=== PATIENT | female | born 1970 | race Caucasian/White ===

== ENCOUNTER 2017-04-01 12:42 | Emergency (ER) | payer OTHER ==
--- NOTE | ~2017-04-01 | CT71 ---
[facility] A Service of [facility] RADIOLOGY TEXT RESULTS PATIENT: TERRY LYNCH LOCATION: [facility] : 71 UNIT #: [id number] AGE: [address]: Beatrice Woods MD SEX: F ORDER DR: [id number] [facility] [address] [place], [place] [address] [id number] E MR#: [id number] Acc #: [id number] NAME: TERRY LYNCH : 1970 SEX: F STUDY DATE/TIME: 04/01/2017 14:07 UNIT: [facility] ROOM: STUDY DESCRIPTION: CT Head Wo Contrast Attending Physician: Beatrice Woods M.D. Ordering Physician: Beatrice Woods M.D. Primary Care Physician: iDnh Alvarez M.D. MEDICAL IMAGING REPORT This report is preliminary unless electronic signature is present EXAM CT brain without contrast media. HISTORY Moyamoya disease. Seizure this morning. TECHNIQUE Axial imaging of the brain was performed without contrast media and compared directly to the patient's most recent scan of 12/23/2016. This CT exam was performed with one or more of the following radiation dose reduction techniques: automatic exposure control, adjustment of mA and/or kV according to patient size, and iterative reconstruction. FINDINGS There is generalized ventricular enlargement. There is decreased attenuation throughout the periventricular region in both hemispheres predominantly over the frontal regions. This is all unchanged from the last study. Bone windows are reviewed. The patient has had bilateral frontotemporal craniotomies. No mass lesions, mass effect, acute hemorrhage, edema or hemorrhage. CONCLUSION Periventricular deep white matter ischemic changes in the frontal lobes with diffuse atrophy. Postsurgical changes in the frontotemporal regions bilaterally. No acute intracranial findings. Dictated by... Jose Francisco Barber M.D. THIS IS AN ELECTRONICALLY VERIFIED REPORT Jose Francisco Barber M.D. at 04/05/2017 4:50 PM ROBERTK/robert [facility] A Service [facility] RADIOLOGY TEXT RESULTS PATIENT: TERRY LYNCH LOCATION: [facility] #: [id number] : 72 UNIT #: [id number] AGE: [address]: Beatrice Woods MD SEX: F ORDER DR: TD: 04/01/2017 16:43 JOB #: [id number] MEDICAL IMAGING REPORT Page 1 of 1 COPY
--- NOTE | ~2017-04-01 | CR72 ---
[facility] A Service of [facility] & [facility] RADIOLOGY TEXT RESULTS PATIENT: TERRY LYNCH LOCATION: [facility] : 71 UNIT #: [id number] AGE: [address]: Beatrice Woods MD SEX: F ORDER DR: [id number] [facility] [address] [place], [place] [address] [id number] E MR#: [id number] Acc #: [id number] NAME: TERRY LYNCH : 1970 SEX: F STUDY DATE/TIME: 04/01/2017 13:39 UNIT: [facility] ROOM: STUDY DESCRIPTION: CR Chest Single View Portable Attending Physician: Beatrice Woods M.D. Ordering Physician: Beatrice Woods M.D. Primary Care Physician: Dinh Alvarez M.D. MEDICAL IMAGING REPORT This report is preliminary unless electronic signature is present EXAM Portable chest 04/01/2017 HISTORY 47-year-old woman generalized body pain, seizure, symptoms today. Comparison chest 12/24/2016 FINDINGS AP portable chest demonstrates normal stable heart size. Hilar structures and mediastinal contours are preserved and normal. Bilateral lungs are expanded and clear. Costophrenic angles are clear. Bony thorax is normal. IMPRESSION Negative and stable chest. Dictated by... Deuce Butler M.D. THIS IS AN ELECTRONICALLY VERIFIED REPORT Deuce Butler M.D. at 04/11/2017 8:10 AM Mable TD: 04/01/2017 15:48 JOB #: [id number] MEDICAL IMAGING REPORT Page 1 of 1 COPY
[~2017-04-01 12:42] MED LIST: AGGRENOX PO; AGGRENOX1 CAP PO; ALBUTEROL17 GM INH; ALPRAZOLAM PO; ASPIRIN PO; ASPIRIN325 M1 PO; AUGMENTIN PO; BENADRYL25 M3 PO; BENADRYL25 MG; CIPRO PO; HCTZ PO; K-DUR20 ME1 PO; KEFLEX500 MG PO; LIPITOR40 MG PO; LORTAB 10/500 T1 TAB PO; LORTAB 101 TAB 10/5 PO; METHADONE PO; MICRO-K PO; NEURONTIN; NEURONTIN PO; NEURONTIN300 MG PO; OXYCODONE15 M1 PO; PERCOCET10 PO; POTASSIUM CHLOR8 MEQ PO; PROPRANOLOL PO; PYRIDIUM100 MG PO; SENNA S TABLET1 TAB PO; SYNTHROID PO; SYNTHROID0.05 MG PO; SYNTHROID0.1 MG PO; TOPAMAX PO; TOPAMAX200 MG PO; TOPAMAX50 MG PO; TUSSIN DM SYRU120 ML PO; VIMPAT100 MG PO; XANAX1 MG PO; ZANAFLEX; ZANAFLEX4 M1 PO
[2017-04-01 14:09] LABS: BASOPHIL# 0.1 X10e3 (0-0.3); EOSINOPHIL# 0.6 X10e3 (0-0.7); EOSINOPHIL% 6.6 % (0.0-7.0); HEMATOCRIT 43.2 % (35.0-45.0); LYMPHOCYTE# 2.2 X10e3 (1.0-3.5); LYMPHOCYTE% 24.4 % (17.0-45.0); MEAN CELL VOLUME 89.3 FL (83-96); MEAN CORPUSCULAR HEMOGLOBIN 28.9 PG (28-34); MEAN CORPUSCULAR HGB CONC 32.4 g/dL (30-36); MEAN PLATELET VOLUME 8.1 FL (6.5-11.5); MONOCYTE# 0.5 X10e3 (0-1.0); MONOCYTE% 5.8 % (3.0-12.0); NEUTROPHIL# 5.5 X10e3 (1.5-7.1); NEUTROPHIL% 62.2 % (40-75); PLATELET COUNT 340 X10e3 (140-420); RED BLOOD COUNT 4.84 X10e (3.90-5.30); RED CELL DISTRIBUTION WIDTH 14.3 % (11.0-15.5); WHITE BLOOD COUNT 8.9 X10e3 (4.0-10.5)
[2017-04-01 14:10] LABS: DIFF IND NO
[2017-04-01 14:41] LABS: ALBUMIN SERUM 3.8 g/dL (3.5-5.0); ALKALINE PHOSPHATASE 83 U/L (32-92); ALT (SGPT) 17 U/L (10-40); AST (SGOT) 20 U/L (10-42); BILIRUBIN,TOTAL 0.2 mg/dL (0.2-2.0); BLOOD UREA NITROGEN 12 mg/dL (9-23); CALCIUM SERUM 9.3 mg/dL (8.4-10.2); CARBON DIOXIDE 25 mmol/L (22-31); CHLORIDE 103 mmol/L (100-111); CREATININE SERUM 1.1 mg/dL (0.6-1.4); GLOM FILT RATE Estimated 60.2 mL/min (>60); GLUCOSE FASTING 111 mg/dL (70-110); PROTEIN TOTAL SERUM 7.6 g/dL (6.0-8.3); SODIUM 137 mmol/L (135-145)
[2017-04-01 14:44] LABS: BILIRUBIN, DIRECT <0.1 mg/dL (0.0-0.2); BILIRUBIN,INDIRECT 0.1 mg/dL (0.0-0.9); POTASSIUM 2.6 mmol/L (3.5-5.1)
[2017-04-01 15:13] LABS: URINE SOURCE CLEAN CATCH
[2017-04-01 15:20] LABS: URINE APPEARANCE CLEAR; URINE BILIRUBIN NEG (NEG); URINE BLOOD 2+ (NEG); URINE COLOR YELLOW; URINE GLUCOSE NEG (NEG); URINE KETONE NEG (NEG); URINE LEUKOCYTE ESTERASE TRACE (NEG); URINE NITRATE NEG (NEG); URINE PH 6.5 (5-8); URINE PROTEIN NEG (NEG); URINE SPECIFIC GRAVITY 1.008 (1.003-1.035); URINE UROBILINOGEN 0.2 MG/DL (NEG)
[2017-04-01 15:24] LABS: CULTURE INDICATED? YES; U HYALINE CASTS AUWI 0-2 /[LPF]; URINE BACTERIA AUWI 2+ (NEGATIVE); URINE SQUAMOUS EPITHELIAL CELL FEW /[HPF]
[2017-04-01 15:34] LABS: AMPHETAMINE NEG (NEG); BARBITURATES NEG (NEG); BENZODIAZEPINES POS (NEG); COCAINE NEG (NEG); MARIJUANA NEG (NEG); OPIATES NEG (NEG); TRICYCLIC ANTIDEPRESSANTS NEG (NEG); U METHADONE NEG (NEG)
[2017-06-21] MEDS ORDERED: OXYCODONE15 M1 PO (14:42)
[2017-06-21] MEDS ORDERED: PATIENT'S PHARMACY (14:42)
[2017-06-21] MEDS ORDERED: LIPITOR20 MG PO (14:42)
[2017-06-21] MEDS ORDERED: GABAPENTIN300 M2 PO (14:43)
[2017-06-21] MEDS ORDERED: AGGRENOX PO (14:43)
[2017-06-21] MEDS ORDERED: HYDROCHLOROTHIA25 MG PO (14:43)
[2017-06-21] MEDS ORDERED: VIMPAT150 MG PO (14:44)
[2017-06-21] MEDS ORDERED: SYNTHROID88 MCG PO (14:44)
[2017-06-21] MEDS ORDERED: TOPAMAX PO (14:44)
== END 2017-04-01 17:19 | disposition home or self-care (01) ==
LOC: CED 12:42
PROVIDERS: Emergency Medicine
DX: N39.0 Urinary tract infection, site not specified (principal); E87.6 Hypokalemia; Z79.899 Other long term (current) drug therapy; Z88.1 Allergy status to other antibiotic agents; Z88.2 Allergy status to sulfonamides; Z88.6 Allergy status to analgesic agent; Z91.040 Latex allergy status; Z88.8 Allergy status to other drugs, medicaments and biological substances
CPT/HCPCS: 36415; 70450; 71010; 80048; 80076; 80307; 81003; 84703; 85025; 87086; 99284

== ENCOUNTER 2017-06-18 19:14 | Emergency (ER) | payer OTHER ==
[~2017-06-18] VITALS: Ht 157.5 cm; Wt 79.8 kg
--- NOTE | ~2017-06-18 | US85 ---
[facility] A Service of [facility] & [facility] RADIOLOGY TEXT RESULTS PATIENT: TERRY LYNCH LOCATION: [facility] : 72 UNIT #: [id number] AGE: [address]: LEROY FARIAS SEX: F ORDER DR: [id number] [place] [address] [id number] E MR#: [id number] Acc #: [id number] NAME: TERRY LYNCH : 1970 SEX: F STUDY DATE/TIME: 06/18/2017 22:24 UNIT: SED ROOM: STUDY DESCRIPTION: [facility] Unil or [facility] Stdy Attending Physician: Leroy Farias Ordering Physician: Jj Medina A.P.R.N. Primary Care Physician: Dinh Alvarez M.D. MEDICAL IMAGING REPORT This report is preliminary unless electronic signature is present. EXAM Left leg vein Doppler 06/18 at 22:24 INDICATIONS Foot and ankle swelling for 1 week. Patient on blood thinners. No trauma. TECHNIQUE Venous ultrasound examination of the left lower extremity was performed using grayscale, spectral Doppler and color flow Doppler imaging. FINDINGS The examination is negative. There is no evidence of left lower extremity deep venous thrombus from the groin to the lower calf. Visualized greater saphenous vein is also patent. IMPRESSION Negative examination. No evidence of left lower extremity deep venous thrombosis. Dictated by... Obi Pedro Jr., M.D. THIS IS AN ELECTRONICALLY VERIFIED REPORT Obi Pedro Jr., M.D. at 06/20/2017 3:12 AM STEPHANIE/sam TD: 06/19/2017 19:44 JOB #: [id number] MEDICAL IMAGING REPORT Page 1 of 1
[2017-06-21] MEDS ORDERED: LIPITOR20 MG PO (14:42)
[2017-06-21] MEDS ORDERED: OXYCODONE15 M1 PO (14:42)
[2017-06-21] MEDS ORDERED: PATIENT'S PHARMACY (14:42)
[2017-06-21] MEDS ORDERED: HYDROCHLOROTHIA25 MG PO (14:43)
[2017-06-21] MEDS ORDERED: AGGRENOX PO (14:43)
[2017-06-21] MEDS ORDERED: GABAPENTIN300 M2 PO (14:43)
[2017-06-21] MEDS ORDERED: TOPAMAX PO (14:44)
[2017-06-21] MEDS ORDERED: VIMPAT150 MG PO (14:44)
[2017-06-21] MEDS ORDERED: SYNTHROID88 MCG PO (14:44)
== END 2017-06-18 23:30 | disposition home or self-care (01) ==
LOC: SED 19:14
DX: M79.662 Pain in left lower leg (principal); M79.652 Pain in left thigh; M25.562 Pain in left knee; M79.675 Pain in left toe(s); M25.572 Pain in left ankle and joints of left foot; E78.5 Hyperlipidemia, unspecified; F41.9 Anxiety disorder, unspecified; Z88.8 Allergy status to other drugs, medicaments and biological substances; Z91.040 Latex allergy status
CPT/HCPCS: 93971; 99284

== ENCOUNTER 2017-06-22 20:51 | Emergency (ER) | payer OTHER ==
[~2017-06-22] VITALS: Ht 167.6 cm; Wt 79.8 kg
--- NOTE | ~2017-06-22 | CT71 ---
[facility] A Service of [facility] RADIOLOGY TEXT RESULTS PATIENT: TERRY LYNCH LOCATION: [facility] : 71 UNIT #: [id number] AGE: [address]: Leonid Patrick MD SEX: F ORDER DR: [id number] [facility] [address] [place], [place] [address] [id number] E MR#: [id number] Acc #: [id number] NAME: TERRY LYNCH : 1970 SEX: F STUDY DATE/TIME: 06/22/2017 23:21 UNIT: [facility] ROOM: STUDY DESCRIPTION: CT Head Wo Contrast Attending Physician: Leonid Patrick M.D. Ordering Physician: Leonid Patrick M.D. Primary Care Physician: Dinh Alvarez M.D. MEDICAL IMAGING REPORT This report is preliminary unless electronic signature is present EXAM Head CT 06/22 at 23:21 INDICATION Headache on the left side for a few days. Seizure today. FINDINGS Axial images were obtained from the base to the vertex without contrast. Comparison is made with 06/21/2017. This CT examination was performed with one or more of the following radiation dose reduction techniques: automatic exposure control, adjustment of mA and/or kV according to patient size, and iterative reconstruction. Again seen are changes of left side craniotomy. There is generalized atrophy. There is bifrontal encephalomalacia. Ventricular size and configuration are stable. Patient also has a right side craniotomy. No acute infarct or hemorrhage. No masses are seen. No skull fracture. IMPRESSION No acute findings. No change from yesterday. Dictated by... Obi Pedro Jr., M.D. THIS IS AN ELECTRONICALLY VERIFIED REPORT Obi Pedro Jr., M.D. at 06/24/2017 12:51 AM STEPHANIE/mariela TD: 06/23/2017 06:43 JOB #: [id number] MEDICAL IMAGING REPORT [facility] A Service of [facility] RADIOLOGY TEXT RESULTS PATIENT: TERRY LYNCH LOCATION: [facility] : 72 UNIT #: [id number] AGE: [address]: Leonid Patrick MD SEX: F ORDER DR: Page 1 of 1 COPY
--- NOTE | ~2017-06-22 | EKG ---
PATIENT: TERRY LYNCH UNIT #: [id number] Ventricular Rate: 105 BPM Atrial Rate: 105 BPM P-R Interval: 154 ms QRS Duration: 80 ms Q-T Interval: 372 ms QTC Calculation(Bezet): 491 ms P Oran: 51 degrees Calculated R Oran: 101 degrees Calculated T Oran: 39 degrees Diagnosis Line: Sinus tachycardia Diagnosis Line: Rightward axis Diagnosis Line: Borderline ECG Diagnosis Line: When compared with ECG of 21-JUN-2017 13:49, Diagnosis Line: No significant change was found Diagnosis Line: Confirmed by VICENTE MCKEON MD ([id number]) on 06/23/2017 Diagnosis Line: 6:49:30 PM INTERPRETING MD: LINDA DOVER
[~2017-06-22 20:51] MED LIST changes: +GABAPENTIN300 M2 PO; +HYDROCHLOROTHIA25 MG PO; +LIPITOR20 MG PO; +PATIENT'S PHARMACY; +SYNTHROID88 MCG PO; +VIMPAT150 MG PO
[2017-06-23 00:18] LABS: BASOPHIL# 0.2 X10e3 (0-0.3); BASOPHIL% 2.3 % (0-2.5); EOSINOPHIL# 0.7 X10e3 (0-0.7); EOSINOPHIL% 7.7 % (0.0-7.0); HEMATOCRIT 37.8 % (35.0-45.0); HEMOGLOBIN 12.5 gm/dL (12.0-16.0); LYMPHOCYTE# 1.9 X10e3 (1.0-3.5); LYMPHOCYTE% 21.1 % (17.0-45.0); MEAN CELL VOLUME 92.6 FL (83-96); MEAN CORPUSCULAR HEMOGLOBIN 30.7 PG (28-34); MEAN CORPUSCULAR HGB CONC 33.1 g/dL (30-36); MEAN PLATELET VOLUME 7.7 FL (6.5-11.5); MONOCYTE# 0.5 X10e3 (0-1.0); NEUTROPHIL# 5.7 X10e3 (1.5-7.1); NEUTROPHIL% 62.9 % (40-75); PLATELET COUNT 290 X10e3 (140-420); RED BLOOD COUNT 4.08 X10e (3.90-5.30); RED CELL DISTRIBUTION WIDTH 14.4 % (11.0-15.5); WHITE BLOOD COUNT 9.1 X10e3 (4.0-10.5)
[2017-06-23 00:19] LABS: DIFF IND NO
[2017-06-23 01:04] LABS: ALBUMIN SERUM 3.1 g/dL (3.5-5.0); ALKALINE PHOSPHATASE 75 U/L (32-92); ALT (SGPT) 16 U/L (10-40); AST (SGOT) 20 U/L (10-42); BLOOD UREA NITROGEN 11 mg/dL (9-23); CALCIUM SERUM 8.6 mg/dL (8.4-10.2); CARBON DIOXIDE 25 mmol/L (22-31); CHLORIDE 106 mmol/L (100-111); GLOM FILT RATE Estimated 67.5 mL/min (>60); GLUCOSE FASTING 96 mg/dL (70-110); MAGNESIUM 1.6 mg/dL (1.6-3.0); POTASSIUM 3.1 mmol/L (3.5-5.1); PROTEIN TOTAL SERUM 6.6 g/dL (6.0-8.3); SODIUM 139 mmol/L (135-145)
[2017-06-23 01:05] LABS: ALCOHOL BLOOD <5 mg/dL (0); BILIRUBIN, DIRECT <0.1 mg/dL (0.0-0.2); BILIRUBIN,TOTAL <0.1 mg/dL (0.2-2.0)
== END 2017-06-23 03:00 | disposition home or self-care (01) ==
LOC: CED 20:51
PROVIDERS: Emergency Medicine
DX: G40.909 Epilepsy, unspecified, not intractable, without status epilepticus (principal); E87.6 Hypokalemia; F17.210 Nicotine dependence, cigarettes, uncomplicated; Z86.73 Personal history of transient ischemic attack (TIA), and cerebral infarction without residual deficits; Z79.899 Other long term (current) drug therapy; Z88.1 Allergy status to other antibiotic agents; Z88.8 Allergy status to other drugs, medicaments and biological substances; Z91.040 Latex allergy status
CPT/HCPCS: 36415; 70450; 80048; 80076; 82947; 83735; 84703; 85025; 93005; 96365; 96375; 99285; G0480; J2060; J3475

== ENCOUNTER 2017-07-04 10:25 | Emergency (ER) | payer OTHER ==
[~2017-07-04] VITALS: Ht 170.2 cm; Wt 79.8 kg
--- NOTE | ~2017-07-04 | CT71 ---
[facility] A Service of [facility] & [facility] RADIOLOGY TEXT RESULTS PATIENT: TERRY LYNCH LOCATION: [facility] : 72 UNIT #: [id number] AGE: [address]: Natanael Washington MD SEX: F ORDER DR: [id number] [facility] [address] [place], [place] [address] [id number] E MR#: [id number] Acc #: [id number] NAME: TERRY LYNCH : 1970 SEX: F STUDY DATE/TIME: 07/04/2017 14:32 UNIT: [facility] ROOM: STUDY DESCRIPTION: CT Head Wo Contrast Attending Physician: Jason Washington M.D. Ordering Physician: Natanael Murillo M.D. Primary Care Physician: Dinh Alvarez M.D. MEDICAL IMAGING REPORT This report is preliminary unless electronic signature is present EXAM CT head, 07/04/2017. HISTORY Left-side chest pain, headache today since 0930 hours. Left-sided headache since [address] head performed skull base through vertex without intravenous contrast. This CT exam was performed with one or more of the following radiation dose reduction techniques: automatic exposure control, adjustment of mA and/or kV according to patient size, and iterative reconstruction. COMPARISON 06/22/2017 FINDINGS The brainstem is unremarkable. Cerebellum and cerebral hemispheres show overall preservation reyes matter-white matter differentiation. Encephalomalacic changes in the bilateral frontal lobes are stable and may be a reflection of prior intervention and/or prior trauma. There is no evidence of hemorrhage or acute cortical ischemia. There are periventricular and deep white matter tract hypodensities more pronounced in the bilateral frontal regions and favored to reflect the presumed prior vascular insult. Some chronic small vessel ischemic change may be present as well. The midline structures are nondisplaced. Outside the areas of encephalomalacic change, the ventricles, cisterns, and sulci show only mild generalized enlargement. There is no intra or extraaxial mass effect. Patient is status post bilateral temporal craniotomies. Some mucosal thickening in ethmoid air cells. No evidence of acute sinusitis. IMPRESSION [facility] A Service of [facility] & [facility] RADIOLOGY TEXT RESULTS PATIENT: TERRY LYNCH LOCATION: [facility] : 72 UNIT #: [id number] AGE: [address]: Natanael Washington MD SEX: F ORDER DR: 1. No change compared to 06/22/2017. No acute abnormalities seen. 2. Chronic changes include: Areas of relatively extensive encephalomalacia in the bilateral frontal lobes. This may be a reflection of remote vascular injury bilaterally or remote traumatic brain injury. No change. 3. Mild underlying atrophy outside the areas of encephalomalacia. 4. Prior bilateral temporal craniotomies. 5. Mild mucosal thickening ethmoid air cells. No indication of acute sinusitis. Dictated by... Jose Francisco Landaverde M.D. THIS IS AN ELECTRONICALLY VERIFIED REPORT Jose Francisco Landaverde M.D. at 07/05/2017 2:07 PM ROSEANNE/nadir TD: 07/04/2017 22:21 JOB #: [id number] MEDICAL IMAGING REPORT Page 1 of 1 COPY
--- NOTE | ~2017-07-04 | EKG ---
PATIENT: TERRY LYNCH UNIT #: [id number] Ventricular Rate: 82 BPM Atrial Rate: 82 BPM P-R Interval: 158 ms QRS Duration: 82 ms Q-T Interval: 356 ms QTC Calculation(Bezet): 415 ms P Gibson: 31 degrees Calculated R Gibson: 74 degrees Calculated T Gibson: 30 degrees Diagnosis Line: Normal sinus rhythm Diagnosis Line: Normal ECG Diagnosis Line: When compared with ECG of 22-JUN-2017 22:47, Diagnosis Line: QT has shortened Diagnosis Line: Confirmed by VICENTE MCKEON MD ([id number]) on 07/04/2017 Diagnosis Line: 7:59:26 PM INTERPRETING MD: LINDA DOVER
--- NOTE | ~2017-07-04 | CR72 ---
[facility] A Service of [facility] & [facility] RADIOLOGY TEXT RESULTS PATIENT: TERRY LYNCH LOCATION: [facility] : 72 UNIT #: [id number] AGE: [address]: Natanael Washington MD SEX: F ORDER DR: [id number] [facility] [address] [place], [place] [address] [id number] E MR#: [id number] Acc #: [id number] NAME: TERRY LYNCH : 1970 SEX: F STUDY DATE/TIME: 07/04/2017 11:57 UNIT: [facility] ROOM: STUDY DESCRIPTION: CR Chest Single View Portable Attending Physician: Jason Washington M.D. Ordering Physician: Natanael Murillo M.D. Primary Care Physician: Dinh Alvarez M.D. MEDICAL IMAGING REPORT This report is preliminary unless electronic signature is present EXAM Portable chest HISTORY Chest pain and headache, onset this morning. TECHNIQUE Single AP view of the chest was obtained. COMPARISON 04/01/2017 FINDINGS A single AP portable view of the chest shows both lungs to be clear. The heart is normal in size. The mediastinal contour is normal. No significant bone abnormalities are seen. IMPRESSION Normal portable chest. Dictated by... Obi Shankar M.D. THIS IS AN ELECTRONICALLY VERIFIED REPORT Obi Shankar M.D. at 07/12/2017 1:55 PM ISRA/joe TD: 07/04/2017 17:24 JOB #: [id number] MEDICAL IMAGING REPORT Page 1 of 1 COPY
[2017-07-04 11:50] LABS: BASOPHIL# 0.1 X10e3 (0-0.3); BASOPHIL% 1.1 % (0-2.5); EOSINOPHIL% 9.5 % (0.0-7.0); HEMATOCRIT 40.7 % (35.0-45.0); HEMOGLOBIN 13.5 gm/dL (12.0-16.0); LYMPHOCYTE# 3.6 X10e3 (1.0-3.5); LYMPHOCYTE% 33.5 % (17.0-45.0); MEAN CELL VOLUME 91.8 FL (83-96); MEAN CORPUSCULAR HEMOGLOBIN 30.4 PG (28-34); MEAN CORPUSCULAR HGB CONC 33.1 g/dL (30-36); MONOCYTE# 0.9 X10e3 (0-1.0); MONOCYTE% 8.2 % (3.0-12.0); NEUTROPHIL# 5.2 X10e3 (1.5-7.1); NEUTROPHIL% 47.7 % (40-75); PLATELET COUNT 314 X10e3 (140-420); RED BLOOD COUNT 4.44 X10e (3.90-5.30); RED CELL DISTRIBUTION WIDTH 13.9 % (11.0-15.5); WHITE BLOOD COUNT 10.9 X10e3 (4.0-10.5)
[2017-07-04 11:56] LABS: DIFF IND NO
[2017-07-04 12:06] LABS: POC - CKMB <1.0 ng/mL (0.0-7.9); POC - TROPONIN <0.05 ng/mL (<=0.05)
[2017-07-04 12:15] LABS: ALBUMIN SERUM 3.5 g/dL (3.5-5.0); ALKALINE PHOSPHATASE 77 U/L (32-92); ALT (SGPT) 23 U/L (10-40); AST (SGOT) 20 U/L (10-42); BILIRUBIN, DIRECT <0.1 mg/dL (0.0-0.2); BILIRUBIN,INDIRECT 0.3 mg/dL (0.0-0.9); BILIRUBIN,TOTAL 0.4 mg/dL (0.2-2.0); BLOOD UREA NITROGEN 16 mg/dL (9-23); CALCIUM SERUM 9.4 mg/dL (8.4-10.2); CARBON DIOXIDE 27 mmol/L (22-31); CHLORIDE 101 mmol/L (100-111); GLOM FILT RATE Estimated 67.5 mL/min (>60); GLUCOSE FASTING 81 mg/dL (70-110); POTASSIUM 3.1 mmol/L (3.5-5.1); PROTEIN TOTAL SERUM 7.3 g/dL (6.0-8.3); SODIUM 137 mmol/L (135-145)
[2017-07-04 15:25] LABS: POC - CKMB <1.0 ng/mL (0.0-7.9); POC - TROPONIN <0.05 ng/mL (<=0.05)
== END 2017-07-04 15:44 | disposition home or self-care (01) ==
LOC: CED 10:25
PROVIDERS: Emergency Medicine
DX: R07.89 Other chest pain (principal); R51 Headache; F41.9 Anxiety disorder, unspecified; E78.5 Hyperlipidemia, unspecified; R56.9 Unspecified convulsions; I10 Essential (primary) hypertension; Z98.51 Tubal ligation status; Z98.890 Other specified postprocedural states; Z88.1 Allergy status to other antibiotic agents; Z88.6 Allergy status to analgesic agent; Z88.2 Allergy status to sulfonamides; Z88.8 Allergy status to other drugs, medicaments and biological substances; Z91.040 Latex allergy status; Z79.899 Other long term (current) drug therapy
CPT/HCPCS: 36415; 70450; 71010; 80048; 80076; 82553; 84484; 85025; 93005; 96374; 96375; 99285; J1200; J2060; J2765